=== PATIENT | female | born 1975 | race Caucasian/White ===

== ENCOUNTER 2025-10-21 19:44 | Emergency (ER) | payer OTHER ==
[~2025-10-21] VITALS: Ht 147.3 cm; Wt 67.4 kg
[~2025-10-21 19:44] MED LIST: ADVIL200 MG PO; CRUTCH1 EACH; IBUPROFEN400 MG PO
[2025-10-21] MEDS ORDERED: VENTOLIN HFA18 GM INH (19:58)
[2025-10-21] MEDS ORDERED: ALBUTEROL/IPRATROPIUM 3 ML NEB INH PRN (20:00)
[2025-10-21 20:12] LABS: BASOPHILS 0.4 % (0.1-1.2); EOSINOPHILS 0.1 % (0.7-5.8); LYMPHOCYTES 2.1 % (19.3-51.7); MCH 30.2 PG (25.6-32.2); MCHC 33.8 g/dL (32.2-35.5); MCV 89.3 fL (79.4-94.8); MONOCYTES 6.6 % (4.7-12.5); NEUTROPHILS 90.5 % (34.0-71.1); RBC 4.94 M/uL (3.93-5.22)
[2025-10-21] MEDS ORDERED: LACTATED RINGER'S 1,000 ML IV ONE (20:15)
[2025-10-21 20:31] LABS: ALT (SGPT) 43.0 U/L (14-59); AST (SGOT) 25.0 U/L (15-37); GLOMERULAR FILTRATION RATE,EST 65.0 mL/min (>60); PROTEIN, TOTAL 7.8 g/dL (6.4-8.2); UREA NITROGEN 13.0 mg/dL (7-18)
[2025-10-21 20:32] LABS: LACTIC ACID, BLOOD 1.8 mmol/L (0.4-2.0)
[2025-10-21 20:47] LABS: CORONAVIRUS COVID-19 AG NEGATIVE (NEGATIVE)
[2025-10-21] MEDS ORDERED: ACETAMINOPHEN 500 MG TAB PO ONE (21:00)
[2025-10-21 21:56] LABS: BLOOD/HGB, URINE NEGATIVE (Negative); KETONE, URINE NEGATIVE (Negative); LEUK ESTERASE, URINE NEGATIVE (negative); NITRITE, URINE NEGATIVE (negative)
[2025-10-21 22:12] LABS: AMPHETAMINES, URINE NEGATIVE (NEGATIVE); BARBITURATES, URINE NEGATIVE (NEGATIVE); BENZODIAZEPINE, URINE NEGATIVE (NEGATIVE); CANNABINOID, URINE NEGATIVE (NEGATIVE); COCAINE, URINE POSITIVE (NEGATIVE); ECSTASY, URINE NEGATIVE (NEGATIVE); FENTANYL, URINE NEGATIVE (NEGATIVE); METHADONE, URINE NEGATIVE (NEGATIVE); OPIATES, URINE NEGATIVE (NEGATIVE); OXYCODONE, URINE NEGATIVE (NEGATIVE); PHENCYCLIDINE, URINE NEGATIVE (NEGATIVE)
[2025-10-21] MEDS ORDERED: METHYLPREDNISOLO4 M1 PO (22:24)
[2025-10-21 22:41] VITALS: BP 142/78
--- NOTE | 2025-10-22 13:57 | EKG ---
[facility] [address] [facility] [place], [place] [address] Signed Sinus tachycardia Possible Left atrial enlargement Possible Anterior infarct , age undetermined Abnormal ECG No previous ECGs available Confirmed by Yoni Cano MD () on 10/22/2025 1:56:48 PM Electronically Signed By: YONI CANO MD 10/22/25 1357 PATIENT NAME: CRYSTAL MEDEROS Electrocardiogram DATE OF : 71 PHYSICIAN: YONI CANO MD REPORT #: [id number] REPORT IS CONFIDENTIAL AND NOT TO BE RELEASED WITHOUT AUTHORIZATION
== END 2025-10-21 22:42 | disposition home or self-care (01) ==
LOC: ED 19:44
PROVIDERS: Internal Medicine
DX: J45.901 Unspecified asthma with (acute) exacerbation (principal); Z88.5 Allergy status to narcotic agent; Z88.8 Allergy status to other drugs, medicaments and biological substances
CPT/HCPCS: 36415; 71045; 80053; 80307; 81003; 83605; 83735; 83880; 84484; 85025; 87040; 93005; 93010; 94640; 96365; 96375; 99285-25; A9270; J0696; J2919; J7121